=== PATIENT | male | born 1995 | race Caucasian/White ===

== ENCOUNTER 2021-06-04 09:33 | Inpatient (IN) | payer MEDICAID ==
[~2021-06-04] VITALS: Ht 177.8 cm; Wt 76.5 kg
--- NOTE | 2021-06-04 09:38 | NUR ---
dr lamas spoke with dr sharif
--- NOTE | 2021-06-04 09:58 | NUR ---
MAKEDA BOBO FROM [facility] W FACIAL AND JAW FX TO HAVE SURG ERP TO THE BS ON PT ARRIVAL AO4 DENIES OTHER INJURY GOOD BREATH SOUNDS AND GOOD DISTAL CMS
[2021-06-04] MEDS ORDERED: ONDANSETRON 2MG/ML, 2ML IVPush ONE (10:00)
[2021-06-04] MEDS ORDERED: SODIUM CHLORIDE 0.9% 1,000 ML IV ONE (10:00)
[2021-06-04] MEDS ORDERED: ONDANSETRON 2MG/ML, 2ML ONE (10:00)
[2021-06-04] MEDS ORDERED: SODIUM CHLORIDE 0.9% 1,000ML IVBOLUS ONE (10:00)
[2021-06-04] MEDS ORDERED: morphine SULFATE 10 MG/ML, 1ML IVPush ONE (10:00)
[2021-06-04] MEDS ORDERED: MORPHINE SULFATE 4 MG/ML, 1ML ONE (10:01)
[2021-06-04 10:09] LABS: BASOPHILS % (AUTO) 1 % (0-1); EOSINOPHILS % (AUTO) 0 % (1-7); LYMPHOCYTES % (AUTO) 7 % (22-44); MEAN CORPUSCULAR HEMOGLOBIN 31.6 pg (27.5-34.5); MEAN CORPUSCULAR HGB CONC 33.2 g/dL (33.2-36.2); MEAN PLATELET VOLUME 8.3 fL (7.4-10.4); MONOCYTES % (AUTO) 6 % (2-9); NEUTROPHILS % (AUTO) 86 % (42-75); PLATELET COUNT 359 x10^3/uL (130-400); RED BLOOD COUNT 4.83 x10^6/uL (4.38-5.82); RED CELL DISTRIBUTION WIDTH 12.8 % (9.4-14.8)
[2021-06-04 10:27] LABS: ANION GAP 9 mmol/L (5-15); CALCIUM 9.1 mg/dL (8.5-10.1); CHLORIDE 107 mmol/L (98-107); CREATININE 0.73 mg/dL (0.7-1.3)
[2021-06-04] MEDS ORDERED: morphine SULFATE 10 MG/ML, 1ML IVPush PRN (10:30)
[2021-06-04] MEDS ORDERED: ACETAMINOPHEN 325 MG TABLET PO PRN (10:30)
[2021-06-04] MEDS ORDERED: ENALAPRILAT 1.25 MG/ML, 2ML IVPush PRN (10:30)
[2021-06-04 11:28] VITALS: BP 135/87
[2021-06-04] MEDS: D5%-0.45% NACL 1,000 ML IV SCH ×2 (13:34→23:06)
[2021-06-04 14:41] VITALS: BP 136/77
[2021-06-04] MEDS: HYDROcodone/APAP 5/325 TABLET PO PRN ×2 (14:51→20:34)
[2021-06-04] MEDS ORDERED: NICOTINE 14MG/24 HR PATCH.TD24 ONE (16:08)
[2021-06-04] MEDS: CHLORHEXIDINE 15 ML UDC MM SCH ×2 (16:10→20:34)
[2021-06-04] MEDS: NICOTINE 14MG/24 HR PATCH.TD24 TD SCH (16:10)
[2021-06-04 20:24] VITALS: BP 123/76
[2021-06-05 00:39] VITALS: BP 131/91
[2021-06-05 06:05] LABS: BASOPHILS % (AUTO) 0 % (0-1); EOSINOPHILS % (AUTO) 1 % (1-7); LYMPHOCYTES % (AUTO) 17 % (22-44); MEAN CORPUSCULAR HEMOGLOBIN 32.1 pg (27.5-34.5); MEAN CORPUSCULAR HGB CONC 33.4 g/dL (33.2-36.2); MEAN PLATELET VOLUME 8.8 fL (7.4-10.4); MONOCYTES % (AUTO) 11 % (2-9); NEUTROPHILS % (AUTO) 71 % (42-75); PLATELET COUNT 328 x10^3/uL (130-400); RED BLOOD COUNT 4.68 x10^6/uL (4.38-5.82); RED CELL DISTRIBUTION WIDTH 13.1 % (9.4-14.8)
[2021-06-05 06:17] LABS: ALBUMIN 3.6 g/dL (3.4-5.0); CALCIUM 9.2 mg/dL (8.5-10.1); CHLORIDE 101 mmol/L (98-107)
[2021-06-05 06:22] LABS: ALANINE AMINOTRANSFERASE 23 U/L (12-78); ALKALINE PHOSPHATASE 59 U/L (45-117); ANION GAP 6 mmol/L (5-15); BILIRUBIN,TOTAL 1.9 mg/dL (0.2-1.0); CREATININE 0.71 mg/dL (0.7-1.3); TOTAL PROTEIN 7.6 g/dL (6.4-8.2)
[2021-06-05] MEDS ORDERED: CHLORHEXIDINE 15 ML UDC PO ONE (06:30)
[2021-06-05] MEDS ORDERED: LIDOCAINE/PF 1%, 30ML ONE (07:06)
[2021-06-05] MEDS ORDERED: MUPIROCIN OINT 2%, 22GM ONE (07:06)
[2021-06-05] MEDS ORDERED: BALANCED SALT OPHTH IRRIG SOLN 18ML ONE (07:06)
[2021-06-05] MEDS ORDERED: EPINEPHRINE 1 MG/ML, 1ML ONE (07:07)
[2021-06-05] MEDS ORDERED: OXYMETAZOLINE NASAL SPRAY 0.05%,30ML ONE (07:07)
[2021-06-05] MEDS ORDERED: MIDAZOLAM 1 MG/ML, 2ML ONE (07:14)
[2021-06-05] MEDS ORDERED: FENTANYL PF 250 MCG/5ML ONE (07:14)
[2021-06-05] MEDS ORDERED: CEFAZOLIN 1,000 MG ONE (07:30)
[2021-06-05] MEDS ORDERED: DEXAMETHASONE 4 MG/ML, 1ML ONE (07:30)
[2021-06-05] MEDS ORDERED: hydrALAzine 20 MG/ML, 1ML ONE (07:30)
[2021-06-05] MEDS ORDERED: PROPOFOL 10 MG/ML, 20ML ONE (07:30)
[2021-06-05] MEDS ORDERED: SUCCINYLCHOLINE 20 MG/ML, 10ML ONE (07:30)
[2021-06-05] MEDS ORDERED: ONDANSETRON 2MG/ML, 2ML ONE (07:30)
[2021-06-05] MEDS ORDERED: ROCURONIUM 10 MG/ML,10ML ONE (07:30)
[2021-06-05] MEDS ORDERED: LIDOCAINE 1%-EPI 1:100K, 30ML INFIL ONE (07:50)
[2021-06-05] MEDS ORDERED: MUPIROCIN OINT 2%, 1 GM APPL. TP ONE (08:27)
[2021-06-05] MEDS ORDERED: BALANCED SALT OPHTH IRRIG SOLN 18ML IO ONE (08:42)
[2021-06-05] MEDS ORDERED: EYE STREAM OP ONE (08:42)
[2021-06-05] MEDS: CHLORHEXIDINE 15 ML UDC MM SCH ×2 (09:00→20:04)
[2021-06-05] MEDS ORDERED: FENTANYL PF 100 MCG/2ML ONE ×3 (09:32→09:34)
[2021-06-05] MEDS ORDERED: OXYcodone 5 MG/5 ML ORAL.SOL UDC PO PRN (10:00)
[2021-06-05] MEDS ORDERED: PROMETHAZINE 25 MG/ML, 1ML IV PRN (10:00)
[2021-06-05] MEDS ORDERED: ONDANSETRON 2MG/ML, 2ML IVPush PRN (10:00)
[2021-06-05] MEDS ORDERED: hydrALAzine 20 MG/ML, 1ML IV PRN (10:00)
[2021-06-05] MEDS ORDERED: HYDROmorphone 1 MG/ML, 1ML INJ IV PRN (10:00)
[2021-06-05] MEDS ORDERED: METOCLOPRAMIDE 5 MG/ML, 2ML IV PRN (10:00)
[2021-06-05] MEDS ORDERED: KETOROLAC 30 MG/1 ML IV PRN (10:30)
[2021-06-05] MEDS ORDERED: ALBUTEROL SULFATE 2.5 MG/3 ML NPPB PRN (10:30)
[2021-06-05] MEDS ORDERED: MEPERIDINE/PF 25MG/0.5ML IVPush PRN (10:30)
[2021-06-05] MEDS ORDERED: LABETALOL 5MG/ML, 20ML IV PRN (10:30)
[2021-06-05] MEDS ORDERED: FENTANYL PF 100 MCG/2ML IV PRN (10:30)
[2021-06-05] MEDS ORDERED: DIAZEPAM 5 MG/ML, 2ML IV PRN ×2 (10:30)
[2021-06-05] MEDS ORDERED: OXYcodone 5 MG/5 ML ORAL.SOL UDC ONE (11:30)
[2021-06-05 12:00] VITALS: BP 143/89
[2021-06-05] MEDS: ONDANSETRON 2MG/ML, 2ML IVPush PRN ×2 (13:28→20:04)
[2021-06-05] MEDS: D5%-0.45% NACL 1,000 ML IV SCH (14:42)
[2021-06-05] MEDS: AMPICILLIN/SULBACTAM 3 GM in SODIUM CHLORIDE 0.9% 100 ML IV SCH ×2 (14:43→20:59)
[2021-06-05] MEDS: TOBRAMYCIN OPHTH OINT 3.5 GM RIGHTEYE SCH ×2 (14:52→20:59)
[2021-06-05] MEDS ORDERED: morphine SULFATE 10 MG/ML, 1ML IVPush PRN (15:30)
[2021-06-05] MEDS: NICOTINE 14MG/24 HR PATCH.TD24 TD SCH (16:36)
[2021-06-05 18:48] VITALS: BP 142/80
[2021-06-05 23:26] VITALS: BP 136/73
[2021-06-06] MEDS: AMPICILLIN/SULBACTAM 3 GM in SODIUM CHLORIDE 0.9% 100 ML IV SCH ×4 (02:52→20:44)
[2021-06-06 02:58] VITALS: BP 127/70
[2021-06-06 07:04] VITALS: BP 126/78
[2021-06-06] MEDS: CHLORHEXIDINE 15 ML UDC MM SCH ×2 (09:02→20:44)
[2021-06-06] MEDS: HYDROcodone/APAP 5/325 TABLET PO PRN ×2 (09:02→14:02)
[2021-06-06] MEDS: TOBRAMYCIN OPHTH OINT 3.5 GM RIGHTEYE SCH ×2 (09:03→21:18)
[2021-06-06 13:29] VITALS: BP 112/67
[2021-06-06] MEDS: NICOTINE 14MG/24 HR PATCH.TD24 TD SCH (17:07)
[2021-06-06 19:15] VITALS: BP 135/83
[2021-06-07 02:08] VITALS: BP 131/82
[2021-06-07] MEDS: AMPICILLIN/SULBACTAM 3 GM in SODIUM CHLORIDE 0.9% 100 ML IV SCH ×2 (03:01→09:00)
[2021-06-07 06:32] VITALS: BP 136/78
[2021-06-07] MEDS: CHLORHEXIDINE 15 ML UDC MM SCH (09:55)
[2021-06-07] MEDS: TOBRAMYCIN OPHTH OINT 3.5 GM RIGHTEYE SCH (09:55)
[2021-06-07] MEDS ORDERED: TOBR3.5O RIGHTEYE (11:09)
[2021-06-07] MEDS ORDERED: HYDR-2214 PO (11:09)
[2021-06-07] MEDS ORDERED: AMOX1TAB64 PO (11:09)
[2021-06-07 12:15] VITALS: BP 145/82
== END 2021-06-07 13:40 | disposition home or self-care (01) | DRG 951 ==
LOC: ED 10:13 → EDIP 10:27 → 4NE 11:18
PROVIDERS: ADMIT Hospitalist; ATTEND Internal Medicine
PROC: 0NST04Z Reposition Right Mandible with Internal Fixation Device, Open Approach (ICD-10-PCS; 2021-06-05)
PROC: 0NSV04Z Reposition Left Mandible with Internal Fixation Device, Open Approach (ICD-10-PCS; principal; 2021-06-05 07:30)
DX: S02.31XA Fracture of orbital floor, right side, initial encounter for closed fracture (principal); G31.2 Degeneration of nervous system due to alcohol; S02.641B Fracture of ramus of right mandible, initial encounter for open fracture; E87.1 Hypo-osmolality and hyponatremia; S02.66XB Fracture of symphysis of mandible, initial encounter for open fracture; Y04.0XXA Assault by unarmed brawl or fight, initial encounter; Z20.822 Contact with and (suspected) exposure to COVID-19; F10.20 Alcohol dependence, uncomplicated; F12.90 Cannabis use, unspecified, uncomplicated; F17.200 Nicotine dependence, unspecified, uncomplicated; M26.4 Malocclusion, unspecified; X58.XXXA Exposure to other specified factors, initial encounter; Y93.89 Activity, other specified; Y92.89 Other specified places as the place of occurrence of the external cause; Y99.8 Other external cause status
CPT/HCPCS: 36415; 70486; 71045; 80048; 80053; 85025; 87635; 93005; 96374; C1713; G0378; J0171; J0295; J0690; J1100; J2250; J2405; J2704; J3010; C1781; J0330; J0360; J2270; J7030